=== PATIENT | male | born 1985 | race Caucasian/White ===

== ENCOUNTER 2021-04-14 20:00 | Emergency (ER) | payer OTHER ==
[~2021-04-14 20:00] MED LIST: NORCO 5-325 TA1 EACH PO
[2021-04-14] MEDS ORDERED: PREDNISONE 20MG20 MG PO (21:21)
[2021-04-14] MEDS ORDERED: CYCLOBENZAPRINE10 MG PO (21:21)
== END 2021-04-14 21:37 | disposition home or self-care (01) ==
LOC: FER 20:00
DX: M54.9 Dorsalgia, unspecified (principal); G89.29 Other chronic pain; Z79.1 Long term (current) use of non-steroidal anti-inflammatories (NSAID); Z79.899 Other long term (current) drug therapy
CPT/HCPCS: 96372; 99283; J1100; J1885